=== PATIENT | female | born 1940 | race Caucasian/White ===

== ENCOUNTER 2021-02-23 15:33 | Outpatient (CLI) | payer MEDICARE, BC, OTHER | END 2021-02-23 15:34 | disposition home or self-care (01) | LOC: CSHULT 15:33 | PROVIDERS: ATTEND Orthopaedic Surgery | DX: R22.41 Localized swelling, mass and lump, right lower limb (principal); M79.89 Other specified soft tissue disorders | CPT/HCPCS: 93970 ==

== ENCOUNTER 2024-12-24 13:36 | Outpatient (CLI) | payer MEDICARE, OTHER | END 2024-12-24 13:37 | disposition home or self-care (01) | LOC: CSHMAMMO 13:36 | PROVIDERS: ATTEND Internal Medicine Hematology & Oncology | DX: Z08 Encounter for follow-up examination after completed treatment for malignant neoplasm (principal); Z85.3 Personal history of malignant neoplasm of breast; M85.80 Other specified disorders of bone density and structure, unspecified site | CPT/HCPCS: 77065; G0279 ==

== ENCOUNTER 2025-01-01 14:28 | Outpatient (CLI) | payer MEDICARE, OTHER | END 2025-01-01 14:29 | disposition home or self-care (01) | LOC: CSHWCC 14:28 | PROVIDERS: ATTEND Nurse Practitioner Family | DX: I87.312 Chronic venous hypertension (idiopathic) with ulcer of left lower extremity (principal); L97.821 Non-pressure chronic ulcer of other part of left lower leg limited to breakdown of skin; C50.019 Malignant neoplasm of nipple and areola, unspecified female breast | CPT/HCPCS: 11042; 11045 ==

== ENCOUNTER 2025-01-08 14:08 | Outpatient (CLI) | payer MEDICARE, OTHER | END 2025-01-08 14:09 | disposition home or self-care (01) | LOC: CSHWCC 14:08 | PROVIDERS: ATTEND Nurse Practitioner Family | DX: I87.312 Chronic venous hypertension (idiopathic) with ulcer of left lower extremity (principal); L97.821 Non-pressure chronic ulcer of other part of left lower leg limited to breakdown of skin; C50.019 Malignant neoplasm of nipple and areola, unspecified female breast | CPT/HCPCS: 11042; 11045; 99213; G0463 ==

== ENCOUNTER 2025-01-21 14:08 | Outpatient (CLI) | payer MEDICARE, OTHER | END 2025-01-21 14:09 | disposition home or self-care (01) | LOC: CSHWCC 14:08 | PROVIDERS: ATTEND Nurse Practitioner Family | DX: I87.312 Chronic venous hypertension (idiopathic) with ulcer of left lower extremity (principal); L97.821 Non-pressure chronic ulcer of other part of left lower leg limited to breakdown of skin; C50.019 Malignant neoplasm of nipple and areola, unspecified female breast | CPT/HCPCS: 87070; 87077; 87186; 87205 ==

== ENCOUNTER 2025-02-04 13:56 | Outpatient (CLI) | payer MEDICARE, OTHER | END 2025-02-04 13:57 | disposition home or self-care (01) | LOC: CSHWCC 13:56 | PROVIDERS: ATTEND Nurse Practitioner Family | DX: I87.312 Chronic venous hypertension (idiopathic) with ulcer of left lower extremity (principal); L97.821 Non-pressure chronic ulcer of other part of left lower leg limited to breakdown of skin; C50.019 Malignant neoplasm of nipple and areola, unspecified female breast; L08.9 Local infection of the skin and subcutaneous tissue, unspecified | CPT/HCPCS: 11042; 11045; G0463; 99213 ==

== ENCOUNTER 2025-02-18 14:17 | Outpatient (CLI) | payer MEDICARE, OTHER | END 2025-02-18 14:18 | disposition home or self-care (01) | LOC: CSHWCC 14:17 | PROVIDERS: ATTEND Nurse Practitioner Family | DX: I87.312 Chronic venous hypertension (idiopathic) with ulcer of left lower extremity (principal); L97.821 Non-pressure chronic ulcer of other part of left lower leg limited to breakdown of skin; C50.019 Malignant neoplasm of nipple and areola, unspecified female breast; L08.9 Local infection of the skin and subcutaneous tissue, unspecified | CPT/HCPCS: 97597; 97598; G0463; 99213 ==

== ENCOUNTER 2025-02-20 08:49 | Outpatient (CLI) | payer MEDICARE, OTHER | END 2025-02-20 08:50 | disposition home or self-care (01) | LOC: CSHRAD 08:49 | PROVIDERS: ATTEND Family Medicine Sports Medicine | DX: M54.50 Low back pain, unspecified (principal); M46.1 Sacroiliitis, not elsewhere classified; M81.0 Age-related osteoporosis without current pathological fracture; M47.816 Spondylosis without myelopathy or radiculopathy, lumbar region | CPT/HCPCS: 72100; 72202 ==

== ENCOUNTER 2025-02-25 14:09 | Outpatient (CLI) | payer MEDICARE, OTHER | END 2025-02-25 14:10 | disposition home or self-care (01) | LOC: CSHWCC 14:09 | PROVIDERS: ATTEND Nurse Practitioner Family | DX: I87.312 Chronic venous hypertension (idiopathic) with ulcer of left lower extremity (principal); L97.821 Non-pressure chronic ulcer of other part of left lower leg limited to breakdown of skin; C50.019 Malignant neoplasm of nipple and areola, unspecified female breast; L08.9 Local infection of the skin and subcutaneous tissue, unspecified | CPT/HCPCS: 11042; 11045; G0463; 99213 ==

== ENCOUNTER 2025-03-11 13:41 | Outpatient (CLI) | payer MEDICARE, OTHER | END 2025-03-11 13:42 | disposition home or self-care (01) | LOC: CSHWCC 13:41 | PROVIDERS: ATTEND Nurse Practitioner Family | DX: I87.312 Chronic venous hypertension (idiopathic) with ulcer of left lower extremity (principal); L97.821 Non-pressure chronic ulcer of other part of left lower leg limited to breakdown of skin; C50.019 Malignant neoplasm of nipple and areola, unspecified female breast; L08.9 Local infection of the skin and subcutaneous tissue, unspecified; I87.2 Venous insufficiency (chronic) (peripheral); I89.0 Lymphedema, not elsewhere classified | CPT/HCPCS: 99214; G0463 ==